=== PATIENT | female | born 1950 | race Caucasian/White ===

== ENCOUNTER 2017-11-18 14:57 | Emergency (ER) | payer MEDICARE, OTHER ==
[2017-11-18 15:39] LABS: URINE APPEARANCE CLEAR; URINE BILIRUBIN NEGATIVE (NEGATIVE); URINE BLOOD MODERATE (NEGATIVE); URINE COLOR YELLOW; URINE GLUCOSE (UA) NEGATIVE (NEGATIVE); URINE KETONE NEGATIVE (NEGATIVE); URINE LEUKOCYTE ESTERASE SMALL (NEGATIVE); URINE NITRITE NEGATIVE (NEGATIVE); URINE UROBILINOGEN 0.2 E.U./dL (0.20 - 1.00)
--- NOTE | 2017-11-18 15:41 | Emergency Department Record ---
History of Present Illness - General Chief complaint: Female Urogenital Problem Stated complaint: BLADDER INFECTION,FEVER Time Seen by Provider: 11/18/17 15:06 Source: Patient, Family Mode of Arrival: Ambulatory Limitations: No limitations - History of Present Illness Initial comments: 66 yo female presents with urinary frequency today. Early she had chills as well that went away with Tylenol. She states her TMax was 103 but then returned to normal. No vomiting, back or abdominal pain. Normal appetite. No blood in the urine. No rash. No flank pain. MD Complaint: Dysuria Onset/Timin -: Days(s) Severity: Moderate Severity scale (1-10): 7 Quality: Other Consistency: Intermittent Worsens with: None Associated Symptoms: Fever/chills, Other - Related Data Home Medications Medication Instructions Recorded Confirmed Last Taken Hydrocodone/Acetaminophen [[place] 1 tab PO Q4HR PRN 11/18/17 11/18/17 11/17/17 7.5-325 Tablet] Loratadine [Claritin] 10 mg PO DAILY 11/18/17 11/18/17 11/18/17 Multivitamin [Multi-Vitamin Daily] 1 each PO DAILY 11/18/17 11/18/17 11/18/17 Omeprazole [Prilosec] 20 mg PO DAILY 11/18/17 11/18/17 11/18/17 Simvastatin [Zocor] 10 mg PO QHS 11/18/17 11/18/17 11/17/17 Previous Rx's Medication Instructions Recorded Nitrofurantoin Monohyd/M-Cryst 100 mg PO BID #14 capsule 11/18/17 [Macrobid 100 mg Capsule] Allergies Allergy/AdvReac Type Severity Reaction Status Date / Time bacitracin Allergy RASH Verified 11/18/17 15:18 [From Neosporin ([id number])] neomycin Allergy RASH Verified 11/18/17 15:18 [From Neosporin ([id number])] polymyxin B Allergy RASH Verified 11/18/17 15:18 [From Neosporin ([id number])] Travel Screening - Travel/Exposure Within Last 30 Days Have you traveled within the last 30 days?: No - Travel/Exposure Within Last Year Have you traveled outside the [place] in the last year?: No - Additonal Travel Details Have you been exposed to anyone with a communicable illness?: No - Travel Symptoms Symptom Screening: None Review of Systems Constitutional: Reports: Chills, Fever. Denies: Malaise, Weakness Eyes: Denies: Eye discharge ENT: Denies: Congestion, Throat pain Respiratory: Denies: Cough, Dyspnea, Hemoptysis, Stridor, Wheezes Cardiovascular: Denies: Chest pain, Palpitations, Syncope Endocrine: Denies: Fatigue Gastrointestinal: Denies: Abdominal pain, Constipation, Diarrhea, Nausea, Vomiting Genitourinary: Reports: Dysuria, Frequency, Urgency. Denies: Abnormal menses, Discharge, Dyspareunia, Hematuria, Incontinence, Retention Musculoskeletal: Denies: Arthralgia, Back pain, Gout, Myalgia Skin: Denies: Bruising, Change in color, Rash Neurological: Denies: Headache, Numbness, Weakness Psychiatric: Denies: Anxiety Hematological/Lymphatic: Denies: Easy bleeding, Easy bruising Past Medical History - SOCIAL HISTORY Smoking Status: Never smoker Alcohol Use: Occasional Drug Use: None - RESPIRATORY Hx Respiratory Disorders: No - CARDIOVASCULAR Hx Cardio Disorders: Yes Hx Hypertension: Yes - NEURO Hx Neuro Disorders: No - GI Hx GI Disorders: Yes Hx Reflux: Yes - Hx Genitourinary Disorders: No - ENDOCRINE Hx Endocrine Disorders: No - MUSCULOSKELETAL Hx Musculoskeletal Disorders: Yes Comment:: knee relpacement - PSYCH Hx Psych Problems: No - HEMATOLOGY/ONCOLOGY Hx Hematology/Oncology Disorders: Yes Hx Cancer: Yes (skin, squamous cell) Family Medical History Any Significant Family History?: Yes Hx Cancer: Father Hx Diabetes: Mother Hx Heart Disease: Father Physical Exam - General General Appearance: Alert, Oriented x3, Cooperative, No acute distress Limitations: No limitations - Head Head exam: Atraumatic, Normal inspection - Eye Eye exam: Normal appearance, PERRL. negative: Conjunctival injection, Scleral icterus - ENT ENT exam: Normal exam, Mucous membranes moist Ear exam: Normal external inspection Nasal Exam: Normal inspection Mouth exam: Normal external inspection - Neck Neck exam: Normal inspection - Respiratory Respiratory exam: Normal lung sounds bilaterally. negative: Accessory muscle use, Decreased breath sounds, Respiratory distress, Rhonchi, Stridor, Wheezes - Cardiovascular Cardiovascular Exam: Regular rate, Normal rhythm, Normal heart sounds - GI/Abdominal GI/Abdominal exam: Soft, Normal bowel sounds. negative: Distended, Guarding, Rebound, Rigid, Tenderness - Rectal Rectal exam: Deferred - exam: Deferred - Extremities Extremities exam: Normal inspection, Full ROM, Normal capillary refill. negative: Tenderness - Back Back exam: Reports: Full ROM. Denies: CVA tenderness (R), CVA tenderness (L), Tenderness - Neurological Neurological exam: Alert, Oriented X3 - Psychiatric Psychiatric exam: Normal affect, Normal mood - Skin Skin exam: Dry, Intact, Normal color, Warm Course Vital Signs 11/18/17 15:25 Temperature 99.5 F Pulse Rate 94 H Respiratory 18 Rate Blood Pressure 125/76 Pulse Ox 96 - Reevaluation(s) Reevaluation #1: 11/18/17 16:09 The UA is consistent with UTI Antibiotic provided in the ED Disposition Disposition: Discharge Clinical Impression: Urinary tract infection Disposition: Home, Self-Care Condition: (1) Good Instructions: Urinary Tract Infection in Women (ED) Additional Instructions: Return if you have fever, vomiting, pain or any new concerns Take the antibiotic as directed for one week Call your doctor for close follow up of this ER visit Prescriptions: Nitrofurantoin Monohyd/M-Cryst [Macrobid 100 mg Capsule] 100 mg PO BID #14 capsule Forms: Patient Portal Access Time of Disposition: 16:10 Quality - Quality Measures Quality Measures: N/A - Blood Pressure Screening Does Patient Have Any of the Following: No Blood Pressure Classification: Normal BP Reading Systolic Measurement: 106 Diastolic Measurement: 65 Screening for High Blood Pressure: < Normal BP, F/U Not Required > [[id number]]
[2017-11-18 15:53] LABS: URINE WBC 21 - 35 (0-2/hpf)
[2017-11-18 15:54] LABS: URINE BACTERIA 3+; URINE EPITHELIAL CELLS 0 - 2 (FEW)
[2017-11-18] MEDS ORDERED: NITROFURANTOIN MONO 100 MG CAPSULE PO ONE (16:24)
== END 2017-11-18 16:33 | disposition home or self-care (01) ==
LOC: ER 14:57
DX: N39.0 Urinary tract infection, site not specified (principal); R31.29 Other microscopic hematuria; I10 Essential (primary) hypertension
CPT/HCPCS: 81001; 99282